=== PATIENT | male | born 1955 | race Caucasian/White ===

== ENCOUNTER 2021-02-08 09:33 | Inpatient (IN) | payer SELFPAY ==
[2021-02-08 10:26] LABS: Absolute Lymphocytes (CBC) 2.2 K/uL (0.7-4.9); Hematocrit 47.6 % (39.6-49.0); Lymphocytes % 27.4 % (15.3-44.8); MPV 9.1 fL (7.6-11.3)
--- NOTE | 2021-02-08 10:28 | RAD REPORT ---
EXAM DESCRIPTION: CT - Head Brain Wo Cont - 02/08/2021 10:21 am CLINICAL HISTORY: DIZZINESS Headache, drowsiness COMPARISON: No comparisons TECHNIQUE: All CT scans are performed using dose optimization technique as appropriate and may inclu de automated exposure control or mA/KV adjustment according to patient size. FINDINGS: No intracranial hemorrhage, hydrocephalus or extra-axial fluid collection.Mild brain atrop hy chronic microvascular ischemic changes.No areas of brain edema or evidence of midline shift. The paranasal sinuses and mastoids are clear. The calvarium is intact. Mild vertebral atherosclerosis . IMPRESSION: No acute intracranial abnormality.
[2021-02-08] MEDS ORDERED: NA CHLORIDE 0.9% 500 ML ONE (10:29)
[2021-02-08] MEDS ORDERED: MECLIZINE HCL 12.5 MG TAB ONE (10:29)
[2021-02-08] MEDS ORDERED: ONDANSETRON 4 MG/2 ML VIAL ONE (10:29)
[2021-02-08] MEDS ORDERED: NA CHLORIDE 0.9% 1,000 ML ONE (10:29)
[2021-02-08 10:44] LABS: Protime INR 1.1
[2021-02-08 10:49] LABS: ALT/SGPT 63 U/L (12-78); AST/SGOT 27 U/L (15-37); Albumin 3.8 g/dL (3.4-5.0); Alkaline Phosphatase 56 U/L (45-117); BUN Blood Urea Nitrogen 15 mg/dL (7-18); Bicarbonate 28 mmol/L (21-32); Bilirubin Direct 0.2 mg/dL (0-0.2); Bilirubin Total 0.7 mg/dL (0.2-1.0); Glucose Level 246 mg/dL (74-106); Magnesium 2.2 mg/dL (1.8-2.4); NT PRO-BNP 14 pg/mL (<125); Potassium 3.6 mmol/L (3.5-5.1); Protein, Total 7.7 g/dL (6.4-8.2); Sodium Level 136 mmol/L (136-145); Troponin (Emerg Dept Use Only) < 0.02 ng/mL (0.0-0.045)
[2021-02-08] MEDS ORDERED: MUPIROCIN 2% OINT 22GM TUBE TOP ONE (10:58)
--- NOTE | 2021-02-08 11:05 | RAD REPORT ---
EXAM DESCRIPTION: MRI - Brain Wo Cont - 02/08/2021 10:46 am CLINICAL HISTORY: DIZZINESS Headache, drowsiness COMPARISON: Head Brain Wo Cont dated 02/08/2021 TECHNIQUE: Multi-sequence, multiplanar MR imaging of the brain was performed without contrast. FINDINGS: No intracranial hemorrhage, hydrocephalus or extra-axial fluid collections. No edema or sh ift of midline structures. No findings to suspect brain mass.Minimal T2 and FLAIR hyperintensity in t he periventricular region. There is a small 7 mm area of acute infarct involving the right lateral as pect the medulla. Midline structures are normally formed. Mastoid air cells and paranasal sinuses are clear. IMPRESSION: 7 mm acute infarct right lateral medullary region. Recommend correlation with clinical s igns and symptoms of Wallenberg syndrome.
[2021-02-08] MEDS ORDERED: ASPIRIN 81 MG CHEWABLE TABLET ONE (11:14)
--- NOTE | 2021-02-08 11:44 | EDPHYS ---
Physician Documentation [facility] Name: Ruben Jacob Age: 65 yrs Sex: Male : 1955 Arrival Date: 02/08/2021 Time: 09:36 Bed 8 Private MD: ED Physician James Chairez HPI: 02/08 10:16 This 65 yrs old Male presents to ER via Ambulatory with complaints of leo Dizziness. 10:16 The patient presents with dizziness, feeling off balance. Onset: The symptoms/episode leo began/occurred 5 day(s) ago. Context: occurred at an unknown location. Modifying factors: The symptoms are alleviated by nothing, the symptoms are aggravated by nothing. Associated signs and symptoms: Pertinent positives: nausea. Severity of symptoms: At their worst the symptoms were mild in the emergency department the symptoms are unchanged. Patient's baseline: Neuro: alert and fully oriented. The patient has not experienced similar symptoms in the past. Historical: - Allergies: 09:56 No Known Allergies; ld1 - Home Meds: 09:56 metformin 500 mg Oral Tb24 1 tab three times a day [Active]; amlodipine 10 mg tab 1 tab ld1 once daily [Active]; valsartan 160 mg oral tab 1 tab once daily [Active]; - PMHx: 09:57 Hypertension; Diabetes - NIDDM; ld1 - Immunization history:: Adult Immunizations not up to date. - Social history:: Smoking status: Patient denies any tobacco usage or history of. - Family history:: not pertinent. ROS: 10:16 Constitutional: Negative for fever, chills, and weight loss, Eyes: Negative for injury, leo pain, redness, and discharge, Neck: Negative for injury, pain, and swelling, Cardiovascular: Negative for chest pain, palpitations, and edema, Respiratory: Negative for shortness of breath, cough, wheezing, and pleuritic chest pain, Abdomen/GI: Negative for abdominal pain, nausea, vomiting, diarrhea, and constipation, Back: Negative for injury and pain, : Negative for injury, bleeding, discharge, and swelling, MS/Extremity: Negative for injury and deformity, Skin: Negative for injury, rash, and discoloration, Psych: Negative for depression, anxiety, suicide ideation, homicidal ideation, and hallucinations, Allergy/Immunology: Negative for hives, rash, and allergies, Endocrine: Negative for neck swelling, polydipsia, polyuria, polyphagia, and marked weight changes, Hematologic/Lymphatic: Negative for swollen nodes, abnormal bleeding, and unusual bruising. 10:16 ENT: Positive for left upper eye lid , red, chronic inflamation, swelling. Exam: 10:16 Constitutional: This is a well developed, well nourished patient who is awake, alert, leo and in no acute distress. Head/Face: Normocephalic, atraumatic. ENT: Nares patent. No nasal discharge, no septal abnormalities noted. Tympanic membranes are normal and external auditory canals are clear. Oropharynx with no redness, swelling, or masses, exudates, or evidence of obstruction, uvula midline. Mucous membranes moist. Neck: Trachea midline, no thyromegaly or masses palpated, and no cervical lymphadenopathy. Supple, full range of motion without nuchal rigidity, or vertebral point tenderness. No Meningismus. Chest/axilla: Normal chest wall appearance and motion. Nontender with no deformity. No lesions are appreciated. Cardiovascular: Regular rate and rhythm with a normal S1 and S2. No gallops, murmurs, or rubs. Normal PMI, no JVD. No pulse deficits. Respiratory: Lungs have equal breath sounds bilaterally, clear to auscultation and percussion. No rales, rhonchi or wheezes noted. No increased work of breathing, no retractions or nasal flaring. Abdomen/GI: Soft, non-tender, with normal bowel sounds. No distension or tympany. No guarding or rebound. No evidence of tenderness throughout. Back: No spinal tenderness. No costovertebral tenderness. Full range of motion. Male : Normal genitalia with no discharge or lesions. Skin: Warm, dry with normal turgor. Normal color with no rashes, no lesions, and no evidence of cellulitis. MS/ Extremity: Pulses equal, no cyanosis. Neurovascular intact. Full, normal range of motion. Neuro: Awake and alert, GCS 15, oriented to person, place, time, and situation. Cranial nerves II-XII grossly intact. Motor strength 5/5 in all extremities. Sensory grossly intact. Cerebellar exam normal. Normal gait. Psych: Awake, alert, with orientation to person, place and time. Behavior, mood, and affect are within normal limits. 10:16 Eyes: Periorbital structures: cellulitis, erythema, that is mild, swelling, that is mild. 10:29 ECG was reviewed by the Attending Physician. [facility] Vital Signs: 09:51 BP 132 / 97; Pulse 93; Resp 18; Temp 98.0(O); Pulse Ox 99% on R/A; Weight 99.79 kg; ld1 Height 5 ft. 11 in. (180.34 cm); Pain 0/10; 09:57 BP 132 / 97; Pulse 93; Resp 18; Temp 98.0(O); Pulse Ox 99% on R/A; Weight 99.79 kg; ld1 Height 5 ft. 11 in. (180.34 cm); Pain 0/10; 11:52 BP 116 / 90; Pulse 78; Resp 18; Pulse Ox 100% on R/A; Pain 0/10; ld1 13:00 BP 131 / 87; Pulse 86; Resp 18; Pulse Ox 98% on R/A; ld1 14:30 BP 122 / 87; Pulse 86; Resp 18; Pulse Ox 100% on R/A; Pain 0/10; ld1 09:57 Body Mass Index 30.68 (99.79 kg, 180.34 cm) ld1 MDM: 09:48 Patient medically screened. [facility] 10:28 Differential diagnosis: cardiac arrhythmia, CVA, TIA. Data reviewed: vital signs, [facility] nurses notes, lab test result(s), EKG, radiologic studies, CT scan, MRI, plain films. Data interpreted: monitor and storage bin tender: rate is 93 beats/min, rhythm is regular, Pulse oximetry: on room air is 99 %. Test interpretation: by ED physician or midlevel provider: ECG, plain radiologic studies. 11:36 ED course: these symptoms present for over a week , not aTpa candidate, dw dr mancuso, [facility] asa, plavix, lipitor and folic acid. 02/08 09:55 Order name: Basic Metabolic Panel; Complete Time: 11:32 [facility] 02/08 09:55 Order name: CBC with Diff; Complete Time: 11:32 [facility] 02/08 09:55 Order name: LFT's; Complete Time: 11:32 [facility] 02/08 09:55 Order name: Magnesium; Complete Time: 11:32 [facility] 02/08 09:55 Order name: NT PRO-BNP; Complete Time: 11:32 [facility] 02/08 09:55 Order name: PT-INR; Complete Time: 11:32 [facility] 02/08 09:55 Order name: Troponin (emerg Dept Use Only); Complete Time: 11:32 [facility] 02/08 09:55 Order name: XRAY Chest (1 view) [facility] 02/08 09:55 Order name: CT Head Brain wo Cont; Complete Time: 11:32 [facility] 02/08 11:34 Order name: Lipid Profile [facility] 02/08 12:22 Order name: Lipid Profile; Complete Time: 13:46 EDMS 02/08 12:38 Order name: COVID-19 : Document "Date of Symptom Onset" if Symptomatic. aa5 02/08 12:54 Order name: CORONAVIRUS EDMD 02/08 13:34 Order name: SARS-COV-2 RT PCR; Complete Time: 13:46 EDMS 02/08 09:55 Order name: EKG; Complete Time: 09:56 [facility] 02/08 09:55 Order name: Cardiac monitoring; Complete Time: 10:01 [facility] 02/08 09:55 Order name: US Carotid Artery Bilateral; Complete Time: 13:46 [facility] 02/08 10:17 Order name: Brain Wo Cont; Complete Time: 11:32 EDMS 02/08 11:44 Order name: Echo w/ Doppler [facility] 02/08 11:59 Order name: RAD; Complete Time: 13:46 EDMS 02/08 09:55 Order name: EKG - Nurse/Tech; Complete Time: 10:01 [facility] 02/08 09:55 Order name: IV Saline Lock; Complete Time: 10:18 [facility] 02/08 09:55 Order name: Labs collected and sent; Complete Time: 10:18 [facility] 02/08 09:55 Order name: O2 Per Protocol; Complete Time: 10:01 [facility] 02/08 09:55 Order name: O2 Sat Monitoring; Complete Time: 10:01 [facility] EC:29 Rate is 94 beats/min. Rhythm is regular. QRS [place] is Normal. [place] interval is normal. QRS leo interval is normal. QT interval is normal. No Q waves. T waves are Normal. No ST changes noted. Clinical impression: NSR w/ Non-specific ST/T Changes and No evidence of ischemia. Interpreted by me. Reviewed by me. Administered Medications: 10:18 Drug: Meclizine 50 mg Route: PO; ld1 11:49 Follow up: Response: No adverse reaction ld1 11:41 Not Given (Patient Refused): Bactroban (mupirocin) Ointment 2 % 1 application Topical ld1 once; left eyelid 11:48 Drug: NS 0.9% 500 ml Route: IV; Rate: bolus; Site: right antecubital; ld1 11:48 Drug: NS 0.9% 1000 ml Route: IV; Rate: 125 ml/hr; Site: right antecubital; ld1 11:49 Drug: Zofran (Ondansetron) 4 mg Route: IVP; Site: right antecubital; ld1 12:37 Follow up: Response: No adverse reaction ld1 11:56 Drug: Aspirin Chewable Tablet 324 mg Route: PO; ld1 12:36 Follow up: Response: No adverse reaction ld1 11:56 Drug: foLIC Acid 1 mg Route: IVPB; Site: right antecubital; ld1 12:36 Follow up: Response: No adverse reaction ld1 12:07 Drug: Lipitor (atorvastatin) 20 mg Route: PO; ld1 12:36 Follow up: Response: No adverse reaction ld1 12:07 Drug: PlaVIX (clopidogrel) 75 mg Route: PO; ld1 12:36 Follow up: Response: No adverse reaction ld1 Disposition: 02/08/21 11:43 Hospitalization ordered by Amber Martinez for Observation. 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 - Bed requested for Telemetry/MedSurg (observation). - Status is Observation. ld1 - Condition is Stable. - Problem is new. - Symptoms have improved. Signatures: Dispatcher [employer] EDMindy Jones RN RN James Miller MD MD cha Dibbern, Lauren RN RN ld1 Corrections: (The following items were deleted from the chart) 10:17 10:08 MR STROKE PROTOCOL+MRI.RAD.BRZ ordered. [facility] EDMD 14:45 11:43 Hospitalization Ordered by Amber Martinez MD for Observation. 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 Bed requested for Telemetry/MedSurg (observation). Status is Observation. Condition is Stable. Problem is new. Symptoms have improved. leo 15:28 14:45 02/08/2021 11:43 Hospitalization Ordered by Amber Martinez MD for Observation. 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 Bed requested for Telemetry/MedSurg (observation). Status is Observation. Condition is Stable. Problem is new. Symptoms have improved. dw
--- NOTE | 2021-02-08 11:44 | ER ---
Nurse's Notes [facility] Name: Ruben Jacob Age: 65 yrs Sex: Male : 1955 Arrival Date: 02/08/2021 Time: 09:36 Bed 8 Private MD: Diagnosis: Brain stem stroke syndrome-acute right lateral medullary infarct;Type 2 diabetes mellitus;Essential (primary) hypertension Presentation: 02/08 09:51 Chief complaint: Patient states: Dizziness \\T\\ Nausea X 5 days. Coronavirus screen: ld1 Client denies travel out of the [place] in the last 14 days. At this time, the client does not indicate any symptoms associated with coronavirus-19. Ebola Screen: No symptoms or risks identified at this time. Initial Sepsis Screen: Does the patient meet any 2 criteria? No. Patient's initial sepsis screen is negative. Does the patient have a suspected source of infection? No. Patient's initial sepsis screen is negative. Risk Assessment: Do you want to hurt yourself or someone else? Patient reports no desire to harm self or others. Onset of symptoms was February 03, 2021. 09:51 Method Of Arrival: Ambulatory ld1 09:51 Acuity: DENI 3 ld1 Triage Assessment: 09:57 General: Appears in no apparent distress. comfortable, Behavior is calm, cooperative, ld1 appropriate for age. Pain: Denies pain. EENT: No signs and/or symptoms were reported regarding the EENT system. Neuro: Level of Consciousness is awake, alert, obeys commands, Oriented to person, place, time, situation, Appropriate for age. Neuro: Reports dizziness, since 02/03/2021. Dizziness and Nausea began. Cardiovascular: Capillary refill < 3 seconds Patient's skin is warm and dry. Respiratory: Airway is patent Respiratory effort is even, unlabored, Respiratory pattern is regular, symmetrical. GI: Abdomen is flat, non-distended, Reports nausea. : No signs and/or symptoms were reported regarding the genitourinary system. Derm: No signs and/or symptoms reported regarding the dermatologic system. Musculoskeletal: No signs and/or symptoms reported regarding the musculoskeletal system. Historical: - Allergies: 09:56 No Known Allergies; ld1 - Home Meds: 09:56 metformin 500 mg Oral Tb24 1 tab three times a day [Active]; amlodipine 10 mg tab 1 tab ld1 once daily [Active]; valsartan 160 mg oral tab 1 tab once daily [Active]; - PMHx: 09:57 Hypertension; Diabetes - NIDDM; ld1 - Immunization history:: Adult Immunizations not up to date. - Social history:: Smoking status: Patient denies any tobacco usage or history of. - Family history:: not pertinent. Screenin:54 VAN Screening: Arm Drift: Patient shows no arm weakness. Patient is VAN negative. ld1 09:59 Abuse screen: Denies threats or abuse. Denies injuries from another. Nutritional ld1 screening: No deficits noted. Tuberculosis screening: No symptoms or risk factors identified. Fall Risk None identified. 09:59 Fall Risk None identified. ld1 Assessment: 09:59 Reassessment: See Triage assessment. ld1 11:52 Reassessment: No changes from previously documented assessment. Patient and/or family ld1 updated on plan of care and expected duration. Pain level reassessed. Pt denies pain at this time. States dizziness is still present. Notified ERP. 13:00 Reassessment: Patient and/or family updated on plan of care and expected duration. Pain ld1 level reassessed. Patient is alert, oriented x 3, equal unlabored respirations, skin warm/dry/pink. Patient denies pain at this time. 14:59 Reassessment: Tried to call report, was told the nurse was busy and I would be ld1 receiving a call back. 15:00 Reassessment: patient in bed with daughter at bedside. Denies any concerns at this ld1 time. Waiting on results. Vital Signs: 09:51 BP 132 / 97; Pulse 93; Resp 18; Temp 98.0(O); Pulse Ox 99% on R/A; Weight 99.79 kg; ld1 Height 5 ft. 11 in. (180.34 cm); Pain 0/10; 09:57 BP 132 / 97; Pulse 93; Resp 18; Temp 98.0(O); Pulse Ox 99% on R/A; Weight 99.79 kg; ld1 Height 5 ft. 11 in. (180.34 cm); Pain 0/10; 11:52 BP 116 / 90; Pulse 78; Resp 18; Pulse Ox 100% on R/A; Pain 0/10; ld1 13:00 BP 131 / 87; Pulse 86; Resp 18; Pulse Ox 98% on R/A; ld1 14:30 BP 122 / 87; Pulse 86; Resp 18; Pulse Ox 100% on R/A; Pain 0/10; ld1 09:57 Body Mass Index 30.68 (99.79 kg, 180.34 cm) ld1 ED Course: 09:36 Patient arrived in ED. ds1 09:43 Hanna Kelly RN is Primary Nurse. ld1 09:48 James Chairez MD is Attending Physician. leo 09:54 Triage completed. ld1 09:57 Arm band placed on right wrist. Patient placed in an exam room, on a stretcher, on ld1 cardiac cath technologist, on pulse oximetry. EKG completed in triage. Results shown to MD. 09:59 Patient has correct armband on for positive identification. Bed in low position. Call ld1 light in reach. Side rails up X 1. 09:59 monitor technician on. Pulse ox on. NIBP on. Door closed. Noise minimized. Warm blanket ld1 given. 09:59 No provider procedures requiring assistance completed. ld1 10:11 Inserted saline lock: 20 gauge in right antecubital area, using aseptic technique. jd3 Blood collected. 10:21 CT Head Brain wo Cont In Process Unspecified. EDMS 10:34 Brain Wo Cont In Process Unspecified. EDMS 11:17 US Carotid Artery Bilateral In Process Unspecified. EDMS 11:39 Amber Martinez MD is Hospitalizing Provider. leo 12:47 COVID-19 : Document "Date of Symptom Onset" if Symptomatic. Sent. ld1 15:28 Patient admitted, IV remains in place. intact, No redness/swelling at site. ld1 Administered Medications: 10:18 Drug: Meclizine 50 mg Route: PO; ld1 11:49 Follow up: Response: No adverse reaction ld1 11:41 Not Given (Patient Refused): Bactroban (mupirocin) Ointment 2 % 1 application Topical ld1 once; left eyelid 11:48 Drug: NS 0.9% 500 ml Route: IV; Rate: bolus; Site: right antecubital; ld1 11:48 Drug: NS 0.9% 1000 ml Route: IV; Rate: 125 ml/hr; Site: right antecubital; ld1 11:49 Drug: Zofran (Ondansetron) 4 mg Route: IVP; Site: right antecubital; ld1 12:37 Follow up: Response: No adverse reaction ld1 11:56 Drug: Aspirin Chewable Tablet 324 mg Route: PO; ld1 12:36 Follow up: Response: No adverse reaction ld1 11:56 Drug: foLIC Acid 1 mg Route: IVPB; Site: right antecubital; ld1 12:36 Follow up: Response: No adverse reaction ld1 12:07 Drug: Lipitor (atorvastatin) 20 mg Route: PO; ld1 12:36 Follow up: Response: No adverse reaction ld1 12:07 Drug: PlaVIX (clopidogrel) 75 mg Route: PO; ld1 12:36 Follow up: Response: No adverse reaction ld1 Outcome: 11:43 Decision to Hospitalize by Provider. leo 15:27 Admitted to Med/surg accompanied by tech, via wheelchair, room 210, with chart. ld1 15:27 Condition: stable 15:27 Discharge instructions given to patient, family, Instructed on discharge instructions, the need for admit, medication usage, Demonstrated understanding of instructions, follow-up care, medications. 15:28 Patient left the ED. ld1 Signatures: Dispatcher [employer] EDMS James Chairez MD MD cha Sanford, Demi ds1 Edson Crandall RN RN jd3 Dibbern, Lauren, RN RN ld1
[2021-02-08] MEDS ORDERED: FOLIC ACID 5 MG/ML VIAL ONE (11:53)
[2021-02-08] MEDS ORDERED: ACETAMINOPHEN 500 MG TAB PO PRN (11:56)
[2021-02-08] MEDS ORDERED: ONDANSETRON 4 MG/2 ML VIAL IV PRN (11:56)
--- NOTE | 2021-02-08 11:59 | RAD REPORT ---
EXAM DESCRIPTION: RAD - Chest Single View - 02/08/2021 11:49 am CLINICAL HISTORY: COUGH Chest pain. COMPARISON: No comparisons FINDINGS: Portable technique limits examination quality. The lungs are grossly clear. The heart is normal in size. No displaced fractures. IMPRESSION: No acute intrathoracic process suspected.
[2021-02-08] MEDS: NA CHLORIDE 0.9% 1,000 ML IV SCH ×2 (12:00→20:23)
--- NOTE | 2021-02-08 12:00 | RAD REPORT ---
EXAM DESCRIPTION: - CP - 02/08/2021 11:33 am CLINICAL HISTORY: DIZZINESS Headache, drowsiness, CVA COMPARISON: No comparisons TECHNIQUE: Real-time sonographic evaluation of both carotid systems was performed. Doppler interroga tion was performed with waveform tracing bilaterally. FINDINGS: Normal high resistance waveforms are noted in both external carotid arteries. The common c arotid arteries and internal carotid arteries show normal low resistance waveforms. Small calcified plaque is present right carotid bulb. Peak systolic and end diastolic velocity values and the ICA/CCA ratios are in the non-hemodynamically significant range. Antegrade flow seen in both vertebral arteries. IMPRESSION: Small calcified plaque right carotid bulb. No evidence of a hemodynamically significant stenosis.
[2021-02-08] MEDS ORDERED: CLOPIDOGREL 75 MG TABLET ONE (12:20)
[2021-02-08] MEDS ORDERED: ATORVASTATIN 20 MG TAB ONE (12:20)
[2021-02-08 15:52] VITALS: BMI 30.7
[2021-02-08] MEDS: METFORMIN HCL 500 MG TAB PO SCH (17:18)
[2021-02-08] MEDS ORDERED: PNEUMOCOCCAL VACCINE 0.5 ML IMVAC ONE (18:00)
[2021-02-08] MEDS: ATORVASTATIN 80 MG TAB PO SCH (20:19)
[2021-02-08] MEDS ORDERED: POTASSIUM CL SA 10 MEQ TAB PO ONE (21:00)
--- NOTE | 2021-02-08 23:50 | CON ---
Reason For Consultation: Consultation called because of stroke. History Of Present Illness: Mr. Jacob is a 65-year-old right-handed patient with hyperte nsion, diabetes mellitus, who comes to [facility] with 5 days of nausea, vomiting, tendency to fall towards the right, blurred vision, slurred speech. He has a chronic left hemifacial spasm of at least 20 years duration. He said his symptoms have fluctuated, but they have not resolved and he came to [facility]. His head CT scan identified no acute ischemic or hemorrhagic changes, but mild brain atrophy and chronic small vessel ischemic disease. However, the brain MRI identified a 7 mm acute infarct in the lateral medulla on the right. The location is consistent with Wallenberg type stroke. His carotid artery ultrasound study showed small calcified plaque in the right carotid bulb without evidence of hemodynamically significant stenosis. Blood work was unremarkable includin g complete blood count with differential, INR of 1.1. Chemistries did show glucose elevated at 246, otherwise normal. Liver function studies normal. LDL cholesterol elevated at 132, HDL cholesterol l ow at 35. Hemoglobin A1c was pending. COVID-19 test negative. The patient was not taking an aspiri n daily and since hospitalization is put on aspirin 81 mg, Plavix 75 mg, Lipitor 80 mg at bedtime, fo lic acid 1 mg daily, and metformin, and allowed to have mild permissive hypertension. He is on Norva sc 10 mg daily. Past Medical History: As indicated. Allergies: NO KNOWN DRUG ALLERGIES. Medications: Metformin 500 mg 3 times daily, amlodipine 10 mg daily, valsartan 60 mg daily. Family History: Noncontributory. Social History: No alcohol, tobacco, or IV drug use. Review of Systems: Aside from mentioned, he has no fevers, chills, myalgias, arthralgias, rash, headache, weight change. No psychiatric issues. No other positives on a 10 point systems review unless stated. Physical Examination: Vital Signs: Blood pressure 116/75, pulse of 77, respiratory rate 18, temperature 97.8, oxygen satur ation 98% on room air. Weight 220 pounds, height 5 feet 11 inches, BMI 30.7. General: Mr. Jacob is resting in bed. He is in no acute distress. He is normocephalic, atraumati c. Sclerae anicteric. Oropharynx is moist and pink. Neck: Supple. Chest: Clear. Heart: Regular. Extremities: No edema, cyanosis, or clubbing. Neurological: He has left facial twitching from a left hemifacial spasm otherwise and there is some decrease of the nasolabial fold on the left. He has mild difficulty with labial, lingual, and guttur al sounds. He has no obvious weakness noted in the upper and lower extremities. He has a mild stock ing-glove loss to light touch temperature in the arms and legs, but could not appreciate this asymmet ry. He does have some dysmetria on the right upper and lower extremity with pain in the nose and sofia l-to-velasco and as noted he drifted to the right with ambulation. Reflexes are symmetric and depressed in the upper and lower extremities. Assessment: Mr. Jacob is a 65-year-old patient with stroke risk factors of hypertension, diabetes mellitus, who was not taking an aspirin when he had a Wallenberg type stroke, but however it is only partial, and it is 7 mm in the right lateral medulla. He has coordination deficits that includes his speech and right upper and lower extremities. His carotid Doppler showed no evidence of hemodynamic ally significant stenosis. He does have an echocardiogram pending. Plan: 1.Continue aspirin, Plavix, folic acid, high-dose statin for permissive hypertension. 2.Aggressive outpatient physical therapy for balance, coordination, strength, and improving gait jeff ng with speech. He actually was cleared by Speech for swallowing and has no swallowing difficulties. He may be discharged home after the rest of his workup is done, including echocardiogram and may fo llow up in Dr. Byers's clinic 1 month later and he should have outpatient physical therapy as uzair casiano. AKILA/SLICK Voice ID: [id number] Report ID: [id number]
[2021-02-09 05:52] LABS: Absolute Lymphocytes (CBC) 2.3 K/uL (0.7-4.9); Basophils % 0.8 % (0-1.3); Hematocrit 42.8 % (39.6-49.0); Lymphocytes % 28.6 % (15.3-44.8); MPV 9.2 fL (7.6-11.3); RBC Red Blood Cell Count 4.64 M/uL (4.33-5.43)
[2021-02-09 06:09] LABS: Urine Appearance CLEAR (Clear); Urine Bilirubin NEGATIVE (Negative); Urine Blood NEGATIVE (Negative); Urine Color YELLOW (Yellow); Urine Glucose 1+ (Negative); Urine Protein NEGATIVE (Negative); Urine pH 5.5 (5.0-7.0)
[2021-02-09 06:14] LABS: Urine Microscopic Reflex NO UMIC
[2021-02-09 06:29] LABS: ALT/SGPT 47 U/L (12-78); AST/SGOT 23 U/L (15-37); Albumin 3.2 g/dL (3.4-5.0); Alkaline Phosphatase 48 U/L (45-117); BUN Blood Urea Nitrogen 15 mg/dL (7-18); Bicarbonate 27 mmol/L (21-32); Bilirubin Total 0.6 mg/dL (0.2-1.0); Glucose Level 197 mg/dL (74-106); Phosphorus 3.8 mg/dL (2.5-4.9); Potassium 3.7 mmol/L (3.5-5.1); Protein, Total 6.4 g/dL (6.4-8.2); Sodium Level 138 mmol/L (136-145); Troponin I < 0.02 ng/mL (0.0-0.045)
--- NOTE | 2021-02-09 07:51 | EKG ---
Test Date: 2021-02-08 Test Time: 09:58:08 [employer]forcing [employer] Worker Helper: HUSAM MEASUREMENT RESULTS: Intervals: Rate: 94 [place]: 180 QRSD: 88 QT: 366 QTc: 457 [place]: P: 33 [place]: 180 QRS: 81 T: 18 INTERPRETIVE STATEMENTS: Normal sinus rhythm Possible Lateral infarct, age undetermined Abnormal ECG No previous ECG available for comparison Electronically Signed On 02-09-21 07:48:26 CDT by Get Stevens
--- NOTE | 2021-02-09 08:05 | ECHO ---
HEIGHT: 5 ft 11 in WEIGHT: 220 lb 0 oz DATE OF STUDY: 02/08/[address]: Jmaes Chairez MD 2-DIMENSIONAL: YES M.MODE: YES DOPPLER: YES COLOR FLOW: YES TDS: PORTABLE: DEFINITY: BUBBLE STUDY: DIAGNOSIS: CEREBRAL VASCULAR ACCIDENT CARDIAC HISTORY: CATHERIZATION: SURGERY: PROSTHETIC VALVE: PACEMAKER: MEASUREMENTS (cm) DIASTOLIC (NORMALS) SYSTOLIC (NORMALS) IVSd 0.9 (0.6-1.2) LA Diam 2.1 (1.9-4.0) LVEF 62% LVIDd 2.3 (3.5-5.7) LVIDs 1.6 (2.0-3.5) %FS 32% LVPWd 1.0 (0.6-1.2) Ao Diam 2.9 (2.0-3.7) 2 DIMENSIONAL ASSESSMENT: RIGHT ATRIUM: NORMAL LEFT ATRIUM: NORMAL RIGHT VENTRICLE: NORMAL LEFT VENTRICLE: NORMAL TRICUSPID VALVE: NORMAL MITRAL VALVE: SEE BELOW PULMONIC VALVE: NORMAL AORTIC VALVE: NORMAL PERICARDIAL EFFUSION: NONE AORTIC ROOT: NORMAL LEFT VENTRICULAR WALL MOTION: NORMAL DOPPLER/COLOR FLOW: NORMAL COMMENTS: NORMAL LEFT VENTRICULAR EJECTION FRACTION 55-60%. MOBILE STRUCTURE ATTACHED TO MITRAL VALVE (RECOMMEND TRANSESOPHAGEAL ECHOCARDIOGRAM). TECHNOLOGIST: PRANEETH TIRADO
[2021-02-09] MEDS: ASPIRIN EC 81 MG TAB PO SCH (08:55)
[2021-02-09] MEDS: AMLODIPINE 10 MG TAB PO SCH (08:55)
[2021-02-09] MEDS: METFORMIN HCL 500 MG TAB PO SCH ×3 (08:55→16:42)
[2021-02-09] MEDS: CLOPIDOGREL 75 MG TABLET PO SCH (08:55)
[2021-02-09] MEDS: ENOXAPARIN 40 MG/0.4 ML SQ SCH (08:56)
[2021-02-09] MEDS ORDERED: POTASSIUM 25 MEQ EFFERV TAB PO ONE (09:28)
[2021-02-09] MEDS: NA CHLORIDE 0.9% 1,000 ML IV SCH ×2 (14:40→21:48)
[2021-02-09] MEDS: ATORVASTATIN 80 MG TAB PO SCH (21:48)
[2021-02-10] MEDS: NA CHLORIDE 0.9% 1,000 ML IV SCH (04:00)
[2021-02-10 06:08] LABS: BUN Blood Urea Nitrogen 12 mg/dL (7-18); Bicarbonate 28 mmol/L (21-32); Glucose Level 170 mg/dL (74-106); Potassium 3.6 mmol/L (3.5-5.1); Sodium Level 139 mmol/L (136-145); Troponin I < 0.02 ng/mL (0.0-0.045)
[2021-02-10] MEDS: CLOPIDOGREL 75 MG TABLET PO SCH (08:40)
[2021-02-10] MEDS: METFORMIN HCL 500 MG TAB PO SCH ×2 (08:40→11:59)
[2021-02-10] MEDS: ASPIRIN EC 81 MG TAB PO SCH (08:40)
[2021-02-10] MEDS: AMLODIPINE 10 MG TAB PO SCH (08:40)
[2021-02-10] MEDS: ENOXAPARIN 40 MG/0.4 ML SQ SCH (08:41)
[2021-02-10 08:57] VITALS: TEMP 97.5
[2021-02-10] MEDS ORDERED: POTASSIUM CL SA 10 MEQ TAB PO ONE (09:00)
--- NOTE | 2021-02-10 10:46 | P.HP ---
Certification for Inpatient Patient admitted to: Inpatient With expected LOS: >2 Midnights Patient will require the following post-hospital care: None Practitioner: I am a practitioner with admitting privileges, knowledge of patient current condition, hospital course, and medical plan of care. Services: Services provided to patient in accordance with Admission requirements found in Title 42 Section 412.3 of the Code of Federal Regulations Patient History Date of Service: 02/08/21 Reason for admission: Acute CVA History of Present Illness: Patient is a 65-year-old gentleman who came to the hospital with ataxia. Patient also has some left-sided weakness. Patient states symptoms have been going on for the last 3-4 days. Clinically continues to show no improvement so he came into the emergency room for further evaluation. In the emergency room he had a CT of the brain which did not reveal any hemorrhage but and it refillable subacute infarct. MRI of the brain confirmed a 7 mm acute infarct right lateral medullary region. This was consistent with Wallenberg syndrome. Patient had ataxia and paresthesias but does not have any dysphagia or dysarthria. Patient is clinically feeling better. Still having some paresthesias and will be admitted to the hospital for further evaluation. Patient was outside the window of tPA. Further workup for embolic area will be done as well Allergies No Known Allergies Allergy (Unverified 02/08/21 12:44) Home Medications: Amlodipine [Norvasc*] 1 tab PO DAILY 02/08/21 Metformin HCl [Glucophage*] 1 tab PO TID 02/08/21 Valsartan/Hydrochlorothiazide [Valsartan-Hctz 160-12.5 mg Tab] 1 tab PO DAILY 02/08/21 - Past Medical/Surgical History Has patient received pneumonia vaccine in the past: No Diabetic: Yes -: Hypertension -: Diabteres- NIDDM Past Surgical History: Patient denies surgical history - Family History Father Family History: Reviewed- Non-Contributory - Social History Smoking Status: Never smoker Alcohol use: No CD- Drugs: No Caffeine use: No Place of Residence: Home Review of Systems 10-point ROS is otherwise unremarkable Physical Examination - Vital Signs Temperature: 97.5 F Blood Pressure: 139/78 Pulse: 75 Respirations: 18 Pulse Ox (%): 97 - Physical Exam General: Alert, In no apparent distress, Oriented x3 HEENT: Atraumatic, PERRLA, Mucous membr. moist/pink, EOMI, Sclerae nonicteric Neck: Supple, 2+ carotid pulse no bruit, No LAD, Without JVD or thyroid abnormality Respiratory: Diminished, Expiratory wheezes Cardiovascular: Regular rate/rhythm, Normal S1 S2, Systolic murmur Gastrointestinal: Normal bowel sounds, Soft and benign, Non-distended, No tenderness Musculoskeletal: No clubbing, No swelling, No tenderness Integumentary: No rashes Neurological: Normal gait, Normal speech, Normal strength at 5/5 x4 extr, Normal tone, Cranial nerves 3-12 intact, Normal affect, Abnormal sensation Lymphatics: No axilla or inguinal lymphadenopathy Assessment & Plan - Problems (Diagnosis) (1) Stroke, Wallenberg's syndrome Current Visit: Yes Status: Acute (2) Acute CVA (cerebrovascular accident) Current Visit: Yes Status: Acute - Plan 1. Physical therapy evaluation 2. Speech therapy evaluation 3. Anti-platelet therapy and statin therapy 4. Lipid profile in the morning 5. MRI of the brain/echocardiogram/carotid Doppler 6. Physically patient is doing well and may benefit more from outpatient physical therapy and inpatient rehab 7. Neurology consultation 8. Permissive hypertension and gradual blood pressure control 9. Neuro checks every 4 hr 10. GI and DVT prophylaxis Discharge Plan: Home Plan to discharge in: Greater than 2 days - Advance Directives Does patient have a Living Will: No Does patient have a Durable POA for Healthcare: No - Code Status/Comfort Care Code Status Assessed: Yes Code Status: Full Code Critical Care: No Time Spent Managing PTS Care (In Minutes): 45
--- NOTE | 2021-02-10 10:49 | P.PN ---
Subjective Date of Service: 02/09/21 Clinically feeling better. Still has some ataxia and weakness Review of Systems 10-point ROS is otherwise unremarkable Physical Examination - Vital Signs Temperature: 97.5 F Blood Pressure: 139/78 Pulse: 75 Respirations: 18 Pulse Ox (%): 97 - Physical Exam General: Alert, In no apparent distress, Oriented x3 Respiratory: Diminished, Expiratory wheezes Cardiovascular: Regular rate/rhythm, Normal S1 S2, No murmurs Gastrointestinal: Normal bowel sounds, Soft and benign, Non-distended, No tenderness Musculoskeletal: No tenderness Integumentary: No rashes Neurological: Cranial nerves 3-12 intact, Abnormal gait, Abnormal strength, Abnormal sensation Lymphatics: No axilla or inguinal lymphadenopathy - Studies Medications List Reviewed: Yes Assessment & Plan - Problems (Diagnosis) (1) Stroke, Wallenberg's syndrome Current Visit: Yes Status: Acute (2) Acute CVA (cerebrovascular accident) Current Visit: Yes Status: Acute - Plan 1. Physical therapy evaluation appreciated 2. Speech therapy evaluation appreciated 3. Anti-platelet therapy and statin therapy 4. Lipid profile in the morning; LDL 130s -continue outpatient statin therapy him repeat the profile in 12 weeks 5. MRI of the brain/echocardiogram/carotid Doppler-reviewed 6. Physically patient is doing well and may benefit more from outpatient physical therapy; patient is refusing inpatient rehab at this time 7. Neurology consultation appreciated 8. Continue with gradual blood pressure control 9. Neurochecks as needed 10. GI and DVT prophylaxis Discharge Plan: Home Plan to discharge in: Greater than 2 days - Advance Directives Does patient have a Living Will: No Does patient have a Durable POA for Healthcare: No - Code Status/Comfort Care Code Status: Full Code Critical Care: No Time Spent Managing PTS Care (In Minutes): 35
--- NOTE | 2021-02-10 10:59 | P.DS ---
Discharge Date: 02/10/21 Reason for Admission: Acute CVA Consultations: Neurology - Problems (1) Stroke, Wallenberg's syndrome Current Visit: Yes Status: Acute (2) Acute CVA (cerebrovascular accident) Current Visit: Yes Status: Acute Brief History of Present Illness: Patient is a 65-year-old gentleman who came to the hospital with ataxia. Patient also has some left-sided weakness. Patient states symptoms have been going on for the last 3-4 days. Clinically continues to show no improvement so he came into the emergency room for further evaluation. In the emergency room he had a CT of the brain which did not reveal any hemorrhage but and it refillable subacute infarct. MRI of the brain confirmed a 7 mm acute infarct right lateral medullary region. This was consistent with Wallenberg syndrome. Patient had ataxia and paresthesias but does not have any dysphagia or dysarthria. Patient is clinically feeling better. Still having some paresthesias and will be admitted to the hospital for further evaluation. Patient was outside the window of tPA. Further workup for embolic area will be done as well Hospital Course: Patient is clinically doing well with no new complaints. Ataxia has improved. Patient does work with physical therapy and they feel he is walking better without a cane or a walker. Will speak with family and patient is stable for discharge with outpatient follow-up with Neurology in 1-2 weeks. Continue with anti-platelet therapy and statin therapy. Continue with outpatient physical therapy as well. At this time patient is stable for discharge home. Vital Signs/Physical Exam: Temp Pulse Resp BP Pulse Ox 97.5 F 75 18 139/78 97 02/10/21 10:49 02/10/21 10:49 02/10/21 10:49 02/10/21 10:49 02/10/21 10:49 General: Alert, In no apparent distress, Oriented x3 Laboratory Data at Discharge: WBC 8.20 K/uL (4.3-10.9) 02/09/21 05:23 Hgb 14.4 g/dL (13.6-17.9) 02/09/21 05:23 Hct 42.8 % (39.6-49.0) 02/09/21 05:23 Plt Count 291 K/uL (152-406) 02/09/21 05:23 PT 12.7 SECONDS (9.5-12.5) H 02/08/21 10:11 INR 1.10 02/08/21 10:11 Sodium 139 mmol/L (136-145) 02/10/21 05:16 Potassium 3.6 mmol/L (3.5-5.1) 02/10/21 05:16 BUN 12 mg/dL (7-18) 02/10/21 05:16 Creatinine 0.83 mg/dL (0.55-1.3) 02/10/21 05:16 Glucose 170 mg/dL (74-106) H 02/10/21 05:16 Phosphorus 3.8 mg/dL (2.5-4.9) 02/09/21 05:23 Magnesium 2.0 mg/dL (1.8-2.4) 02/09/21 05:23 Total Bilirubin 0.6 mg/dL (0.2-1.0) 02/09/21 05:23 AST 23 U/L (15-37) 02/09/21 05:23 ALT 47 U/L (12-78) 02/09/21 05:23 Alkaline Phosphatase 48 U/L (45-117) 02/09/21 05:23 Troponin I < 0.02 ng/mL (0.0-0.045) 02/10/21 05:16 Triglycerides 127 mg/dL (<150) 02/08/21 10:11 Cholesterol 192 mg/dL (<200) 02/08/21 10:11 HDL Cholesterol 35 mg/dL (40-60) L 02/08/21 10:11 Cholesterol/HDL Ratio 5.49 02/08/21 10:11 Home Medications: Amlodipine [Norvasc*] 1 tab PO DAILY 02/08/21 Metformin HCl [Glucophage*] 1 tab PO TID 02/08/21 Valsartan/Hydrochlorothiazide [Valsartan-Hctz 160-12.5 mg Tab] 1 tab PO DAILY 02/08/21 Physician Discharge Instructions: OK TO DC IV AND DC HOME FOLLOW-UP WITH PRIMARY CARE PROVIDER IN 1-2 WEEKS FOLLOW-UP WITH NEUROLOGY IN 1-2 WEEKS RETURN TO THE ER IF symptoms worsen CALL or TEXT DR. MCFARLANE AT [phone] IF ANY QUESTIONS REGARDING HOSPITAL STAY. PLEASE CALL THE FLOOR AT [phone] IF ANY MEDICATION OR NURSING QUESTIONS. Diet: AHA Activity: Fall precautions Followup: Lui Velez MD [Primary Care Provider] - Time spent managing pt's care (in minutes): 35
[2021-02-10 12:17] VITALS: O2SAT 96
[2021-02-10 13:40] VITALS: BP 137/85
== END 2021-02-10 15:48 | disposition home or self-care (01) | DRG 65 ==
LOC: ER 09:33 → ERHOLD 11:59 → 2ND 15:10
PROVIDERS: ADMIT Hospitalist; ATTEND Hospitalist
DX: I63.9 Cerebral infarction, unspecified (principal); G81.94 Hemiplegia, unspecified affecting left nondominant side; G46.3 Brain stem stroke syndrome; I10 Essential (primary) hypertension; E11.9 Type 2 diabetes mellitus without complications; H53.8 Other visual disturbances; R42 Dizziness and giddiness; R20.2 Paresthesia of skin; R47.81 Slurred speech; Z79.84 Long term (current) use of oral hypoglycemic drugs; Z79.899 Other long term (current) drug therapy; Z20.822 Contact with and (suspected) exposure to COVID-19
CPT/HCPCS: 36415; 70450; 70551; 71045; 80048; 80053; 80061; 80076; 81003; 82947; 83036; 83735; 83880; 84100; 84484; 85025; 85610; 93005; 93306; 93880; 96374; 96375; 97112; 97116; 97161; 99285; J1650; J2405; J7030; J7040; U0003